=== PATIENT | female | born 1995 | race Two or more races ===

== ENCOUNTER 2017-06-13 16:17 | Emergency (ER) | payer OTHER ==
[~2017-06-13] VITALS: Ht 165.1 cm; Wt 59.1 kg
[2017-06-13 17:13] VITALS: BP 113/81
[2017-06-13] MEDS ORDERED: methylPREDNISolone SOD SUCC 125 MG/2 ML VL ONE (17:34)
[2017-06-13] MEDS ORDERED: cefTRIAXone SOD 1,000 MG VL ONE (17:34)
[2017-06-13] MEDS ORDERED: methylPREDNISolone SOD SUCC 125 MG/2 ML VL IM ONE (17:45)
[2017-06-13] MEDS ORDERED: cefTRIAXone SOD 1,000 MG VL IM ONE (17:45)
== END 2017-06-13 17:50 | disposition home or self-care (01) ==
LOC: ER 16:28
DX: J03.00 Acute streptococcal tonsillitis, unspecified (principal)
CPT/HCPCS: 96372; 99284; J0696; J2930